=== PATIENT | female | born 1940 | race Hispanic/Latino ===

== ENCOUNTER 2017-05-12 09:51 | Inpatient (IN) | payer MEDICARE ==
[~2017-05-12] VITALS: Ht 154.9 cm; Wt 97.3 kg
[~2017-05-12 09:51] MED LIST: AMLODIPINE-ATO1 EACH PO; ASPIR 8181 MG PO; ATENOLOL50 MG PO; CALTRATE 600 W1 EACH PO; CIPRO500 MG PO; CYCLOBENZAPRINE10 MG PO; EVISTA60 MG PO; HUMULIN 70100 UNIT/1 SQ; LISINOPRIL10 MG PO; OMEPRAZOLE40 MG PO; PLAVIX75 MG PO; TRIAMTERENE-HC1 EAC1 PO; ULTRAM50 MG PO
[2017-05-12] MEDS ORDERED: ASPIR 8181 MG PO (10:05)
[2017-05-12] MEDS ORDERED: ATORVASTATIN CA20 MG PO (10:05)
[2017-05-12] MEDS ORDERED: ALBUTEROL/IPRATROPIUM 3 ML NEB NEB ONE (10:15)
[2017-05-12 10:29] LABS: BASOPHILS # (AUTO) 0.1 (0.0-0.1); BASOPHILS % 0.4 % (0.0-1.0); EOSINOPHILS # (AUTO) 0.2 (0.0-0.4); EOSINOPHILS % 1.9 % (0.0-6.0); HEMATOCRIT 38.6 % (34.2-44.1); HEMOGLOBIN 12.4 g/dL (12.0-16.0); LYMPHOCYTES # (AUTO) 3.5 (1.0-3.2); LYMPHOCYTES % 30.6 % (18.0-39.1); MEAN CORPUSCULAR HGB CONC 32.1 g/dL (31-35); MEAN CORPUSCULAR VOLUME 87.1 fL (81-99); MONOCYTES # (AUTO) 0.9 (0.2-0.8); MONOCYTES % 7.8 % (4.4-11.3); NEUTROPHILS # (AUTO) 6.7 (2.1-6.9); NEUTROPHILS % 58.9 % (38.7-80.0); PLATELET COUNT 223 x10e3/uL (140-360); RED BLOOD COUNT 4.43 x10e6/uL (3.6-5.1); RED CELL DISTRIBUTION WIDTH 15.1 % (11.7-14.4)
[2017-05-12 10:44] LABS: ALBUMIN 3.2 g/dL (3.5-5.0); ALBUMIN/GLOBULIN RATIO 0.8 (0.8-2.0); ANION GAP 12.5 mmol/L (8-16); CALCIUM 8.7 mg/dL (8.4-10.2); CREATININE, SERUM 0.94 mg/dL (0.57-1.11); POTASSIUM 3.5 mmol/L (3.5-5.1)
[2017-05-12 10:51] LABS: TROPONIN I 0.012 ng/mL (0-0.300)
[2017-05-12 10:54] LABS: B-TYPE NATRIURETIC PEPTIDE2 658.2 pg/mL (0-100)
--- NOTE | 2017-05-12 11:14 | Diagnostic Imaging Report ---
PROCEDURE: A single AP view of the chest. COMPARISON: Chest CT 12/30/2015 INDICATIONS: SOB, COUGH FINDINGS: Lines/tubes: None. Lungs: Increased hilar prominence with perihilar interstitial opacities and bibasilar opacities. Pleura: Small bilateral pleural effusions, left greater than right. Small amount of fluid in the right minor fissure. No pneumothorax. Heart and mediastinum: Stable cardiomegaly. Bones: No acute bony abnormality. IMPRESSION: Cardiomegaly with pulmonary edema and small bilateral pleural effusions. Superimposed pneumonia not excluded. Dictated by: Yosi Palomino M.D. on 05/12/2017 at 11:24 Electronically approved by: Yosi Palomino M.D. on 05/12/2017 at 11:24
--- NOTE | 2017-05-12 12:43 | Diagnostic Imaging Report ---
PROCEDURE: CT scan of the chest WITH intravenous contrast, using standard protocol. TECHNIQUE: The chest was scanned utilizing a multidetector helical scanner from the lung apex through the level of the adrenal glands after the IV administration of 100 cc of Isovue 370. Coronal and sagittal multiplanar reformations were obtained. COMPARISON: Chest radiograph 05/12/2017, chest CT 12/30/2015 INDICATIONS: PULMONARY EMBOLISM FINDINGS: Lines/tubes: None. Lungs and Airways: No filling defects identified to the level of the segmental pulmonary arteries. Smooth interlobular septal thickening. Bilateral lower lobe opacities likely represent atelectasis from adjacent pleural effusions. Pleura: Moderate right and small left pleural effusions. Heart and mediastinum: Stable 1.7 cm low attenuating nodule in the right thyroid lobe with calcification. No significant mediastinal, hilar or axillary lymphadenopathy is seen. The heart is mildly enlarged. No pericardial effusion. The main pulmonary artery measures 2.9 cm in diameter, within normal limits. Ascending aorta measures 3.3 cm in diameter, within normal limits. Three-vessel coronary artery and aortic atherosclerotic calcifications. Soft tissues: Normal. Abdomen: Limited contrast-enhanced views of the upper abdomen show no abnormality within the visualized liver or spleen. Bones: No acute or aggressive osseous lesions. Multilevel degenerative changes of the spine. IMPRESSION: 1. No pulmonary embolism identified. 2. Pulmonary edema with moderate right and small left pleural effusions with adjacent atelectasis. 3. Stable nodule in the right thyroid lobe. Dictated by: Yosi Palomino M.D. on 05/12/2017 at 12:53 Electronically approved by: Yosi Palomino M.D. on 05/12/2017 at 12:53
[2017-05-12] MEDS ORDERED: SODIUM CHLORIDE 0.9% 50ML 0 ML ONE (13:31)
[2017-05-12] MEDS ORDERED: IOPAMIDOL 370 MG/ML 200 ML INFUS..BTL INJ ONE ×2 (13:32→18:51)
[2017-05-12] MEDS ORDERED: FUROSEMIDE INJ 10 MG/ML 4 ML VIAL IV ONE (13:45)
--- OUTSIDE RECORDS SUMMARY | 2017-05-12 15:31 | XMS REPORT ---
Author Author [facility] Address Unknown Phone Unavailable Care Team Providers Care Group Sales Coordinator Name Role Phone MARIANA MICHAUD Unavailable Unavailable Problems This patient has no known problems. Allergies, Adverse Reactions, Alerts This patient has no known allergies or adverse reactions. Medications This patient has no known medications. Results Test Description Test Time Test Comments Text Results Atomic Results Result Comments CT CHEST W [place] [address] Patient Name: KWASI BROWN MR #: [id number] : 1940 Age/Sex: 77/F Req #: [id number] Adm Physician: Ordered by: MARIANA MICHAUD MD Report #: [id number] Location: ER Room/Bed: Procedure: [id number] CT/CT CHEST W Exam Date: 05/12/17 Exam Time: 1215 REPORT STATUS: Signed PROCEDURE: CT scan of the chest WITH intravenous contrast, using standard protocol. TECHNIQUE: The chest was scanned utilizing a multidetector helical scanner from the lung apex through the level of the adrenal glands after the IV administration of 100 cc of Isovue 370. Coronal and sagittal multiplanar reformations were obtained. COMPARISON: Chest radiograph 05/12/2017, chest CT 12/30/2015 INDICATIONS: PULMONARY EMBOLISM FINDINGS: Lines/tubes: None. Lungs and Airways: No filling defects identified to the level of the segmental pulmonary arteries. Smooth interlobular septal thickening. Bilateral lower lobe opacities likely represent atelectasis from adjacent pleural effusions. Pleura: Moderate right and small left pleural effusions. Heart and mediastinum: Stable 1.7 cm low attenuating nodule in the right thyroid lobe with calcification. No significant mediastinal, hilar or axillary lymphadenopathy is seen. The heart is mildly enlarged. No pericardial effusion. The main pulmonary artery measures 2.9 cm in diameter, within normal limits. Ascending aorta measures 3.3 cm in diameter, within normal limits. Three-vessel coronary artery and aortic atherosclerotic calcifications. Soft tissues: Normal. Abdomen: Limited contrast- enhanced views of the upper abdomen show no abnormality within the visualized liver or spleen. Bones: No acute or aggressive osseous lesions. Multilevel degenerative changes of the spine. IMPRESSION: 1. No pulmonary embolism identified. 2. Pulmonary edema with moderate right and small left pleural effusions with adjacent atelectasis. 3. Stable nodule in the right thyroid lobe. Dictated by: Yosi Palomino M.D. on 05/12/2017 at 12:53 Electronically approved by: Yosi Palomino M.D. on 05/12/2017 at 12:53 Dictated By: YOSI PALOMINO MD 1253 Transcribed By: JANES on 05/12/17 1253 COPY TO: MARIANA MICHAUD MD CHEST [facility] (PORTABLE) [place] [address] Patient Name: KWASI BROWN MR #: [id number] : 1940 Age/Sex: 77/F Req #: [id number] Adm Physician: Ordered by: MARIANA MICHAUD MD Report #: [id number] Location: Room/Bed: Procedure: [id number] DX/CHEST SINGLE (PORTABLE) Exam Date: 05/12/17 Exam Time: 1055 REPORT STATUS: Signed PROCEDURE: A single AP view of the chest. COMPARISON: Chest CT 12/30/2015 INDICATIONS: SOB, COUGH FINDINGS: Lines/tubes: None. Lungs : Increased hilar prominence with perihilar interstitial opacities and bibasilar opacities. Pleura: Small bilateral pleural effusions, left greater than right. Small amount of fluid in the right minor fissure. No pneumothorax. Heart and mediastinum: Stable cardiomegaly. Bones: No acute bony abnormality. IMPRESSION: Cardiomegaly with pulmonary edema and small bilateral pleural effusions. Superimposed pneumonia not excluded. Dictated by: Yosi Palomino M.D. on 05/12/2017 at 11: 24 Electronically approved by: Yosi Palomino M.D. on 05/12/2017 at 11: 24 Dictated By: YOSI PALOMINO MD 1124 Transcribed By: JANES on 05/12/17 1124 COPY TO: MARIANA MICHAUD MD
[2017-05-12] MEDS ORDERED: FUROSEMIDE INJ 10 MG/ML 4 ML VIAL IV SCH ×2 (17:00→21:00)
[2017-05-12 18:50] LABS: CREATINE KINASE MB 1.8 ng/mL (0.00-5.00); TROPONIN I 0.017 ng/mL (0-0.300)
[2017-05-12] MEDS ORDERED: SODIUM CHLORIDE 0.9% 50ML 50 ML ONE (18:51)
[2017-05-12] MEDS: LABETALOL HCL IV 5 MG/ML 20ML MDV IV STA ×2 (19:10→19:30)
[2017-05-13 02:01] VITALS: BP 178/59
[2017-05-13] MEDS: LISINOPRIL 10 MG TAB PO SCH ×2 (02:14→07:06)
[2017-05-13 02:15] VITALS: BP 178/59
[2017-05-13 02:16] LABS: CREATINE KINASE MB 1.4 ng/mL (0.00-5.00); TROPONIN I 0.003 ng/mL (0-0.300)
--- NOTE | 2017-05-13 02:21 | Consultation ---
DATE OF CONSULTATION: May 12, 2017 CARDIOLOGY CONSULTATION REQUESTING PHYSICIAN: Dr. Marichuy Bailey REASON FOR CONSULTATION: Dyspnea. HISTORY OF PRESENT ILLNESS: This is a 77-year-old woman with history of coronary artery disease with PCI of the circumflex in February 2016, hypertension, diabetes mellitus, and hyperlipidemia, who presented with complaints of dyspnea. She reports she had been hospitalized for pneumonia in December. She had a prolonged hospital course and then was discharged to rehab for a period of time before she was finally discharged home in January. She was doing well after discharge until last week when she was diagnosed with pneumonia and given a course of antibiotics. However, she noted she began feeling increasing dyspnea and presented to the ER for evaluation. The patient reports she first noted paroxysmal nocturnal dyspnea 3 nights ago and then orthopnea when she was sleeping sitting up 2 nights prior. She noted she was wheezing with increased shortness of breath on Wednesday night. This morning, family noted her legs were edematous and she came to the ER for further evaluation. She denies any chest pain, palpitations, lightheadedness or syncope. She denies any fever or chills. REVIEW OF SYSTEMS: Negative, except as per HPI. PAST MEDICAL HISTORY 1. Coronary artery disease, status post percutaneous coronary intervention of the circumflex in February 2016. 2. Diabetes mellitus. 3. Hyperlipidemia. 4. Hypertension. ALLERGIES: PLEASE SEE EMR. MEDICATIONS: Please see medication list. SOCIAL HISTORY: No tobacco or alcohol. FAMILY HISTORY: Noncontributory. PHYSICAL EXAMINATION VITAL SIGNS: Temperature 98.4 degrees, pulse 78, respiratory rate 18, blood pressure 176/62, oxygen saturation 95% on 2 L nasal cannula. GENERAL: Obese woman, in no acute distress. HEENT: Normocephalic, atraumatic. NECK: Supple. No thyromegaly or cervical lymphadenopathy. No carotid bruit. LUNGS: Clear to auscultation other than decreased breath sounds at the bases. Some crackles at the bases are noted as well. No wheezing. ABDOMEN: Soft, nontender. EXTREMITIES: 2+ pitting edema in bilateral lower extremities. NEURO: Nonfocal exam. LABS: WBC 11.34, hemoglobin 12.5, hematocrit 38.6, platelets 229,000. Sodium 145, potassium 3.5, chloride 112, CO2 24, BUN 15, creatinine 0.94. Troponin 0.017. BNP 658. Chest x-ray: Cardiomegaly with pulmonary edema and small bilateral pleural effusion, superimposed pneumonia not excluded. CT chest: No pulmonary embolism, pulmonary edema with moderate right and small left pleural effusions with adjacent atelectasis, stable nodule in the right thyroid lobe. EKG: Normal sinus rhythm with nonspecific ST- and T-wave abnormality. IMPRESSION 1. Acute diastolic heart failure. 2. Hypertension, uncontrolled. 3. Diabetes mellitus. 4. Hyperlipidemia. RECOMMENDATIONS: Agree with diuresis with intravenous Lasix. Will increase to t.i.d. dosing. Speaking with the patient, the patient has not been monitoring her weight at home. In addition, will evaluate size of pleural effusion to see if these can be drained. Otherwise, echocardiogram has been done. We will review the images. Blood pressure should improve with diuresis as well as resuming home antihypertensive therapy. Thank you for this consult. We will continue to follow. Job#: [id number]
[2017-05-13 07:49] LABS: BASOPHILS % 0.1 % (0.0-1.0); HEMATOCRIT 33.2 % (34.2-44.1); HEMOGLOBIN 10.5 g/dL (12.0-16.0); LYMPHOCYTES # (AUTO) 0.9 (1.0-3.2); LYMPHOCYTES % 9.3 % (18.0-39.1); MEAN CORPUSCULAR HEMOGLOBIN 27.6 pg (28-32); MEAN CORPUSCULAR HGB CONC 31.6 g/dL (31-35); MEAN CORPUSCULAR VOLUME 87.1 fL (81-99); MONOCYTES # (AUTO) 0.9 (0.2-0.8); MONOCYTES % 9.2 % (4.4-11.3); NEUTROPHILS # (AUTO) 7.6 (2.1-6.9); PLATELET COUNT 200 x10e3/uL (140-360); RED BLOOD COUNT 3.81 x10e6/uL (3.6-5.1); RED CELL DISTRIBUTION WIDTH 15.1 % (11.7-14.4)
[2017-05-13 07:56] LABS: ANION GAP 14.3 mmol/L (8-16); CALCIUM 8.6 mg/dL (8.4-10.2); CREATININE, SERUM 1.31 mg/dL (0.57-1.11); POTASSIUM 4.3 mmol/L (3.5-5.1)
[2017-05-13] MEDS ORDERED: DEXTROSE 50% SYRINGE 50 ML IV PRN ×2 (08:45→12:15)
[2017-05-13] MEDS ORDERED: INSULIN REGULAR SQ SCH (09:00)
[2017-05-13] MEDS ORDERED: INSULIN ISOPHANE SQ SCH (09:00)
--- NOTE | 2017-05-13 09:08 | Diagnostic Imaging Report ---
PROCEDURE:CHEST SINGLE (PORTABLE) TECHNIQUE:Portable AP chest INDICATION:Shortness of breath; CHF COMPARISON:None. FINDINGS: Cardiomegaly with central vascular enlargement and mild bilateral interstitial opacity marginally decreased from May 12, 2017. No sizable pleural effusion. Intact skeleton. Of note, there is external material overlying the left upper lobe resulting in a pseudo-pleural line. CONCLUSION: Mild improvement in pulmonary edema with persistent cardiomegaly and central vascular enlargement. Dictated by: Chris Hoyos M.D. on 05/13/2017 at 9:17 Electronically approved by: Chris Hoyos M.D. on 05/13/2017 at 9:17
[2017-05-13] MEDS ORDERED: INSULIN ASPART 70/30 100 UNITS/ML VIAL SC STA (09:21)
[2017-05-13] MEDS ORDERED: INSULIN REGULAR, HUMAN 100 UNIT/1 ML 3ML VIAL SQ ONE ×2 (09:30→12:00)
[2017-05-13] MEDS: FUROSEMIDE INJ 10 MG/ML 4 ML VIAL IV SCH ×3 (09:42→20:48)
[2017-05-13] MEDS ORDERED: INSULIN REGULAR, HUMAN 100 UNIT/1 ML 3ML VIAL SQ SCH (11:30)
--- NOTE | 2017-05-13 12:22 | Progress Note ---
DATE: May 13, 2017 CARDIOLOGY PROGRESS NOTE SUBJECTIVE: The patient denies chest pain. She reports her breathing is better; however, her sugar is not well controlled today. OBJECTIVE VITAL SIGNS: Temperature 97.9 degrees, pulse 72, respiratory rate 16, blood pressure 156/43, oxygen saturation 98% on room air. GENERAL: Obese woman, in no acute distress. LUNGS: Clear to auscultation other than decreased breath sounds at the bases. No wheezes or crackles. CARDIOVASCULAR: Normal rate, regular rhythm. No murmur. Normal S1 and S2. ABDOMEN: Soft, nontender. EXTREMITIES: 2+ pitting edema in bilateral lower extremities. CARDIAC MEDICATIONS 1. Furosemide 40 mg IV t.i.d. 2. Lisinopril 10 mg p.o. daily. LABS: WBC 9.3, hemoglobin 10.5, hematocrit 32.2, platelets 200. Sodium 140, potassium 4.3, chloride 105, CO2 of 25, BUN 25, creatinine 1.31. BNP is 536. IMAGING: Echocardiogram with normal LV systolic function with pseudonormal LA filling pattern consistent with elevated LA pressures. Telemetry, normal sinus rhythm. IMPRESSION 1. Zchyw-ph-rhvcnid diastolic heart failure. 2. Hypertension, uncontrolled. 3. Diabetes mellitus. 4. Hyperlipidemia. RECOMMENDATIONS: Continue diuresis with intravenous Lasix. She has had good urine output. Monitor electrolytes and replete as necessary. Patient's creatinine is high today, but it is consistent with her creatinine during prior admissions. We will monitor with intravenous diuresis. Blood pressure is better with diuresis, increase lisinopril. Thank you for this consult. We will continue to follow. Job#: [id number] BLANCA
[2017-05-13 15:10] VITALS: BP 138/63
[2017-05-13 16:11] VITALS: BP 138/63
[2017-05-13] MEDS: INSULIN REGULAR, HUMAN 100 UNIT/1 ML 3ML VIAL SQ SCH ×2 (16:30→21:00)
[2017-05-13] MEDS: INSULIN ASPART 70/30 100 UNITS/ML VIAL SC SCH (17:00)
[2017-05-13 20:00] VITALS: BP 195/65
[2017-05-13] MEDS ORDERED: LISINOPRIL 10 MG TAB PO STA (22:15)
[2017-05-13] MEDS ORDERED: LISINOPRIL 10 MG TAB PO ONE (23:15)
[2017-05-14] VITALS (8 sets, daily range): BP systolic 153–184; BP diastolic 66–75
[2017-05-14] MEDS: INSULIN REGULAR, HUMAN 100 UNIT/1 ML 3ML VIAL SQ SCH ×4 (07:30→21:35)
[2017-05-14] MEDS: INSULIN ASPART 70/30 100 UNITS/ML VIAL SC SCH ×2 (08:00→16:45)
[2017-05-14] MEDS ORDERED: LISINOPRIL 10 MG TAB PO SCH ×3 (09:00→17:00)
[2017-05-14] MEDS: FUROSEMIDE INJ 10 MG/ML 4 ML VIAL IV SCH ×3 (09:15→21:40)
[2017-05-14 11:25] LABS: ANION GAP 11.8 mmol/L (8-16); CALCIUM 8.3 mg/dL (8.4-10.2); CREATININE, SERUM 1.18 mg/dL (0.57-1.11); POTASSIUM 3.8 mmol/L (3.5-5.1)
[2017-05-14] MEDS ORDERED: POTASSIUM CHLORIDE 10 MEQ TABCR PO NR (14:00)
--- NOTE | 2017-05-14 14:32 | Progress Note ---
DATE: May 14, 2017 CARDIOLOGY PROGRESS NOTE SUBJECTIVE: The patient denies chest pain. She reports her shortness of breath is better. OBJECTIVE VITAL SIGNS: Temperature 96.4 degrees, pulse 62, respiratory rate 21, blood pressure 164/72, oxygen saturation 96% on 2 L nasal cannula. GENERAL: Obese woman, in no acute distress. Awake and alert. LUNGS: Clear to auscultation bilaterally. No wheezes or crackles. CARDIOVASCULAR: Normal rate, regular rhythm. No murmur. Normal S1 and S2. ABDOMEN: Soft, nontender. EXTREMITIES: 2+ pitting edema in bilateral lower extremities. CARDIAC MEDICATIONS 1. Lisinopril 10 mg p.o. daily. 2. Furosemide 40 mg IV t.i.d. LABS: Sodium 143, potassium 3.8, chloride 104, CO2 31, BUN 31, creatinine 1.18. TELEMETRY: Sinus bradycardia. IMPRESSION 1. Gbker-rw-qfbcnun diastolic heart failure. 2. Hypertension, uncontrolled. 3. Diabetes mellitus. 4. Hyperlipidemia. RECOMMENDATIONS: Continue diuresis with intravenous Lasix. Her urine output is good. Monitor electrolytes and replete as necessary. Patient remains hypertensive despite increase in lisinopril. We will further increase her lisinopril and add carvedilol. Thank you for this consult. We will continue to follow. Job#: [id number]
[2017-05-14] MEDS: DOCUSATE SODIUM 100 MG CAP PO SCH (16:45)
[2017-05-14] MEDS: LISINOPRIL 20 MG TAB PO SCH (16:45)
[2017-05-14] MEDS: CARVEDILOL 3.125 MG TAB PO SCH (17:00)
[2017-05-15] VITALS (7 sets, daily range): BP systolic 119–167; BP diastolic 54–78
[2017-05-15] MEDS: INSULIN REGULAR, HUMAN 100 UNIT/1 ML 3ML VIAL SQ SCH ×4 (07:30→21:50)
[2017-05-15] MEDS: LISINOPRIL 20 MG TAB PO SCH ×2 (07:59→17:53)
[2017-05-15] MEDS: CARVEDILOL 3.125 MG TAB PO SCH (07:59)
[2017-05-15] MEDS: DOCUSATE SODIUM 100 MG CAP PO SCH ×2 (07:59→17:33)
[2017-05-15] MEDS: FUROSEMIDE INJ 10 MG/ML 4 ML VIAL IV SCH ×3 (07:59→21:30)
[2017-05-15] MEDS: INSULIN ASPART 70/30 100 UNITS/ML VIAL SC SCH ×2 (08:00→17:00)
[2017-05-15 08:18] LABS: BASOPHILS % 0.4 % (0.0-1.0); EOSINOPHILS # (AUTO) 0.3 (0.0-0.4); EOSINOPHILS % 3.3 % (0.0-6.0); HEMOGLOBIN 12.5 g/dL (12.0-16.0); LYMPHOCYTES # (AUTO) 2.7 (1.0-3.2); LYMPHOCYTES % 27.5 % (18.0-39.1); MEAN CORPUSCULAR HGB CONC 32.1 g/dL (31-35); MEAN CORPUSCULAR VOLUME 87.4 fL (81-99); MONOCYTES # (AUTO) 0.8 (0.2-0.8); MONOCYTES % 8.4 % (4.4-11.3); PLATELET COUNT 223 x10e3/uL (140-360); RED BLOOD COUNT 4.46 x10e6/uL (3.6-5.1); RED CELL DISTRIBUTION WIDTH 14.9 % (11.7-14.4)
[2017-05-15 08:44] LABS: ANION GAP 11.5 mmol/L (8-16); CALCIUM 8.5 mg/dL (8.4-10.2); CREATININE, SERUM 1.17 mg/dL (0.57-1.11); POTASSIUM 3.5 mmol/L (3.5-5.1)
[2017-05-15] MEDS ORDERED: AMLODIPINE BESYLATE 10 MG TAB PO SCH (09:00)
--- NOTE | 2017-05-15 09:13 | Diagnostic Imaging Report ---
EXAMINATION: Chest, CHEST 2 VIEWS INDICATION: Chest pain COMPARISON: Portable chest 05/13/2017 FINDINGS: LINES: None. Heart: Normal cardiac silhouette. Vascular: The pulmonary vasculature is within normal limits. Atherosclerotic calcifications of the aortic arch. Mediastinum: No mediastinal, hilar, or axillary mass or lymphadenopathy. Lungs: No parenchymal mass. No focal consolidation. Pleura: Small left pleural effusion. No pneumothorax. Bones: No acute osseous abnormality. Degenerative changes of the thoracic spine. Soft tissues: Normal. Impression: Small left pleural effusion. Signed by: Dr. Angel Brownlee M.D. on 05/15/2017 9:09 AM
[2017-05-15] MEDS ORDERED: METOPROLOL TARTRATE INJ 1 MG/ML VIAL IV PRN (11:00)
[2017-05-15] MEDS ORDERED: DIGOXIN INJ 0.25 MG/ML 2 ML AMP IV ONE (11:00)
[2017-05-15] MEDS ORDERED: APIXAB 2.5 MG TABLET PO SCH (11:00)
[2017-05-15] MEDS: APIXAB 2.5 MG TABLET PO SCH ×2 (12:21→17:33)
--- NOTE | 2017-05-15 12:52 | Progress Note ---
DATE: May 15, 2017 CARDIOLOGY PROGRESS NOTE SUBJECTIVE: Ms. Centeno feels well. However, she has been in atrial fibrillation for the last several hours. OBJECTIVE VITAL SIGNS: Afebrile. Heart rate 122. Blood pressure 137/74. O2 sat 100%. CARDIOVASCULAR: Irregularly irregular rhythm. Systolic murmur. LUNGS: Clear to auscultation bilaterally. ABDOMEN: Is mildly distended. Hemoglobin is 12.5. GFR is 45. Telemetry shows atrial fibrillation. Electrocardiogram shows atrial fibrillation. ASSESSMENT: 1. Acute on chronic diastolic heart failure. 2. Atrial fibrillation. PLAN: Rate and rhythm control with intravenous digoxin and beta lisa as well as increase of oral beta lisa, anticoagulation with Eliquis. Will continue to follow her closely. Job#: [id number]
[2017-05-15] MEDS: CARVEDILOL 12.5 MG TAB PO SCH (17:33)
[2017-05-16] VITALS: BP 143/58
[2017-05-16 01:27] VITALS: BP 143/58
[2017-05-16 04:00] VITALS: BP 158/62
[2017-05-16 06:59] LABS: BASOPHILS % 0.2 % (0.0-1.0); EOSINOPHILS # (AUTO) 0.3 (0.0-0.4); EOSINOPHILS % 2.9 % (0.0-6.0); HEMATOCRIT 34.3 % (34.2-44.1); LYMPHOCYTES # (AUTO) 2.3 (1.0-3.2); LYMPHOCYTES % 24.9 % (18.0-39.1); MEAN CORPUSCULAR HEMOGLOBIN 28.1 pg (28-32); MEAN CORPUSCULAR HGB CONC 32.1 g/dL (31-35); MEAN CORPUSCULAR VOLUME 87.7 fL (81-99); MONOCYTES # (AUTO) 0.8 (0.2-0.8); MONOCYTES % 8.1 % (4.4-11.3); NEUTROPHILS # (AUTO) 5.9 (2.1-6.9); NEUTROPHILS % 63.5 % (38.7-80.0); PLATELET COUNT 196 x10e3/uL (140-360); RED BLOOD COUNT 3.91 x10e6/uL (3.6-5.1); RED CELL DISTRIBUTION WIDTH 14.7 % (11.7-14.4)
[2017-05-16 07:30] LABS: ANION GAP 13.7 mmol/L (8-16); CALCIUM 8.7 mg/dL (8.4-10.2); CREATININE, SERUM 1.35 mg/dL (0.57-1.11); POTASSIUM 3.7 mmol/L (3.5-5.1)
[2017-05-16] MEDS: INSULIN REGULAR, HUMAN 100 UNIT/1 ML 3ML VIAL SQ SCH ×3 (07:30→16:30)
[2017-05-16 08:00] VITALS: BP 180/72
[2017-05-16] MEDS: CARVEDILOL 12.5 MG TAB PO SCH ×2 (08:52→17:43)
[2017-05-16] MEDS: APIXAB 2.5 MG TABLET PO SCH ×2 (08:53→17:43)
[2017-05-16] MEDS: DOCUSATE SODIUM 100 MG CAP PO SCH ×2 (08:53→17:43)
[2017-05-16] MEDS: INSULIN ASPART 70/30 100 UNITS/ML VIAL SC SCH ×2 (08:53→17:00)
[2017-05-16] MEDS: FUROSEMIDE INJ 10 MG/ML 4 ML VIAL IV SCH ×2 (08:53→15:00)
[2017-05-16] MEDS: LISINOPRIL 20 MG TAB PO SCH ×2 (08:53→17:43)
[2017-05-16] MEDS ORDERED: AMLODIPINE BESYLATE 5 MG TAB PO SCH (09:00)
[2017-05-16 12:00] VITALS: BP 181/82
--- NOTE | 2017-05-16 15:42 | Progress Note ---
DATE: May 16, 2017 CARDIOLOGY PROGRESS NOTE SUBJECTIVE: Ms. Centeno feels much better. She is back in sinus rhythm. OBJECTIVE VITAL SIGNS: Afebrile. Heart rate 48. Blood pressure is 128/70. CARDIOVASCULAR: Regular rhythm. S4 gallop. Systolic murmur. LUNGS: Clear to auscultation bilaterally. Telemetry shows sinus rhythm. ASSESSMENT: 1. Acute on chronic diastolic heart failure. 2. Paroxysmal atrial fibrillation. PLAN: The patient is cleared for discharge from the cardiac standpoint. I will send prescription for Eliquis 5 mg b.i.d. to her pharmacy. I thank Dr. Bailey for the consultation. Job#: [id number]
[2017-05-16 16:00] VITALS: BP 146/60
== END 2017-05-16 18:32 | disposition home or self-care (01) | DRG 292 ==
LOC: ER 09:51 → ERHOLD 15:28 → MED/SURG3 05-13 14:14
DX: I11.0 Hypertensive heart disease with heart failure (principal); J81.1 Chronic pulmonary edema; E11.9 Type 2 diabetes mellitus without complications; I48.0 Paroxysmal atrial fibrillation; Z68.41 Body mass index [BMI] 40.0-44.9, adult; I50.23 Acute on chronic systolic (congestive) heart failure; E66.01 Morbid (severe) obesity due to excess calories; Z79.4 Long term (current) use of insulin; I25.10 Atherosclerotic heart disease of native coronary artery without angina pectoris; Z79.01 Long term (current) use of anticoagulants; Z95.5 Presence of coronary angioplasty implant and graft
CPT/HCPCS: 36415; 71045; 71046; 71260; 80048; 80053; 82550; 82553; 82948; 83605; 83880; 84484; 85025; 85379; 87040; 87400; 93005; 93306; 94640; 94760; 99285; J1160; J1815; J1940; J7799; Q9967

== ENCOUNTER → 2018-02-10 | Day surgery (SDC) | payer MEDICARE ==
[~2018-02-10] MED LIST changes: +AMLODIPINE BESIL1 GM PO; +AMLODIPINE BESYL5 MG PO; +ASCORBIC ACID500 M2; +ATIVAN1 MG PO; +ATORVASTATIN CA20 MG PO; +CLONIDINE HCL0.1 MG PO; +DUONEB NEB; +FAMOTIDINE20 MG PO; +FENTANYL CITRATE/PF 100MCG/2 ML INJ ONE; +HUMALOG100 UNIT/3; +INSULIN REGULAR, HUMAN 100 UNIT/1 ML 3ML VIAL ONE; +LACTULOSE20 GM/30 M PO; +LIDOCAINE HCL 2% LOCAL INJ 5 ML SDV VIAL INJ ONE; +MELATONIN 5 MG; +METFORMIN HCL1000 MG PO; +METFORMIN HCL500 MG PO; +MIRALAX17 GM PO; +MULTI-VITAMIN1 EACH; +MULTIVITAMINS1 EAC6 PO; +PROPOFOL IV EMULSION 10 MG/ML 50 ML VIAL ONE; +SERTRALINE HCL100 MG PO; +SERTRALINE HCL50 MG PO; +ZOFRAN ODT4 MG; +[UNRECOGNIZED DRUG - OTHER]
--- NOTE | 2018-02-10 09:07 | Operative Report ---
DATE OF PROCEDURE: February 10, 2018 REFERRING PHYSICIAN: Alec Siddiqui MD PROCEDURE PERFORMED: Esophagogastroduodenoscopy with gastrostomy tube removal. INDICATIONS FOR PROCEDURE: Patient is G-tube dependent, now swallowing well. For EGD and G-tube removal. MEDICATION: Patient was done under MAC. Please see anesthesiologist's note. PROCEDURE: With the patient in the supine position, flexible fiberoptic Olympus gastroscope was introduced into the esophagus under direct visualization without any difficulty. The esophagus appeared to be within normal limits. The scope was then advanced with ease into the stomach, and there was some patchy erythema noted in the body and the antrum. The bumper of the G-tube was noted in the distal body along the greater curvature. Pylorus appeared to be of normal contour and shape. It was intubated with ease, and the scope was advanced all the way to the 2nd portion of the duodenum. The scope was then withdrawn slowly. Mucosa overlying the proximal 2nd portion and the duodenal bulb appeared to be within normal limits. The scope was then withdrawn back into the stomach and retroflexed. Mucosa overlying the fundus and the cardia appeared to be within normal limits. The scope was then straightened out. The G-tube was then removed in the usual fashion after deflating the bumper and removed per the pull traction method. The scope was subsequently withdrawn. Pressure dressing was applied to the G-tube stoma. Patient tolerated the procedure well. IMPRESSION 1. Normal esophagus. 2. Gastritis, mild. 3. The gastrostomy tube was removed in the usual fashion. Pressure dressing was applied to the gastrostomy tube stoma site. PLAN: The patient can resume p.o. intake. Initiate Protonix 40 mg 1 p.o. q.a.m. a.c. Job#: [id number] cc:CARL SIDDIQUI DO
[2018-02-10 09:50] VITALS: BP 157/74
== END | disposition home or self-care (01) ==
LOC: OR 06:05
PROVIDERS: ATTEND Internal Medicine Gastroenterology
DX: Z43.1 Encounter for attention to gastrostomy (principal); K29.50 Unspecified chronic gastritis without bleeding; I11.0 Hypertensive heart disease with heart failure; I50.9 Heart failure, unspecified; I69.920 Aphasia following unspecified cerebrovascular disease; I48.91 Unspecified atrial fibrillation; Z95.0 Presence of cardiac pacemaker; E11.9 Type 2 diabetes mellitus without complications; Z79.4 Long term (current) use of insulin; Z79.84 Long term (current) use of oral hypoglycemic drugs; Z88.5 Allergy status to narcotic agent
CPT/HCPCS: 36415; 43247; 82948; J1817; J2001; 43246